=== PATIENT | male | born 1980 | race Caucasian/White ===

== ENCOUNTER 2020-07-05 19:01 | Emergency (ER) | payer SELFPAY ==
[2020-07-05 19:04] VITALS: BP 131/97; PULSE 123; RESP 18; TEMP 36.5; O2SAT 98
--- NOTE | 2020-07-05 19:27 | ED.GENADULT ---
HPI - General Adult General Chief complaint: Headache Stated complaint: swollen tonsils Time Seen by Provider: 07/05/20 19:27 History of Present Illness HPI narrative: Right posterior headache for the past 3 days. Associated with Right ear pain, lymphadenopathy, sore throat, and subjective fevers. Seen today at urgent care and sent here due to tonsillar enlargement. No trismus, cough. Related Data Allergies Allergy/AdvReac Type Severity Reaction Status Date / Time No Known Allergies Allergy Verified 07/05/20 19:07 Review of Systems Review of Systems: All systems reviewed & are unremarkable except as noted in HPI and below Constitutional: Constitutional: Denies weakness Eyes: Eyes: Denies change in vision ENT: Denies vertigo and Reports sore throat Cardiovascular: Cardiovascular: Denies chest pain Respiratory: Respiratory: Denies cough and Denies dyspnea Gastrointestinal: Gastrointestinal: Denies abdominal pain and Denies nausea Musculoskeletal: Musculoskeletal: Denies back pain Neurologic: Denies confusion, Denies numbness and Denies weakness [facility] Past Medical History Medical History Sinusitis Exam Const: General: healthy appearing, no acute distress and alert Orientation/consciousness: patient oriented x3 HENMT: Ears: TM abnormal erythematous on the right; not bulging and with no fluid behind the TM Other: oropharyngeal erythema Eyes: Pupils: Equal, round and reactive pupils present Neck: Neck: lymphadenopathy Chest: Chest palpation & inspection: normal inspection of the chest Resp: Effort & Inspection: normal respiratory effort Auscultation: clear to auscultation bilaterally Cardio: Rate: regular rate and tachycardic Course Vital Signs Vital signs: Vital Signs Temperature 36.5 C 07/05/20 19:04 Pulse Rate 123 H 07/05/20 19:04 Respiratory Rate 18 07/05/20 19:04 Blood Pressure 131/97 H 07/05/20 19:04 Pulse Oximetry 98 07/05/20 19:04 Temperature 36.5 C 07/05/20 19:04 Pulse Rate 109 H 07/05/20 20:45 Respiratory Rate 18 07/05/20 20:45 Blood Pressure 121/92 H 07/05/20 21:00 Pulse Oximetry 97 07/05/20 21:01 Medical Decision Making MDM Narrative Medical decision making narrative: Strep positive. Uvula midline with symetrical tonsillar enlargement. Unlikely to be an abscess. Vital Signs Vital Signs: Vital Signs Temperature 36.5 C 07/05/20 19:04 Pulse Rate 123 H 07/05/20 19:04 Respiratory Rate 18 07/05/20 19:04 Blood Pressure 131/97 H 07/05/20 19:04 Pulse Oximetry 98 07/05/20 19:04 Temperature 36.5 C 07/05/20 19:04 Pulse Rate 109 H 07/05/20 20:45 Respiratory Rate 18 07/05/20 20:45 Blood Pressure 121/92 H 07/05/20 21:00 Pulse Oximetry 97 07/05/20 21:01 Lab Data Labs: Strep Screen Positive Group A Strep *(Reference Range: Negative)* Discharge Plan Discharge Clinical Impression: Strep tonsillitis Patient Disposition: Home, Self-Care Condition: Stable Instructions: Antibiotic Form, Tonsillitis (ED) Prescriptions: New penicillin V potassium 500 mg tablet 500 mg PO Q12H Qty: 20 RF: 0 Follow-up/Referrals: PHYSICIAN,[employer] [Primary Care Provider] - Stand Alone Forms: Work/School Release IP
[2020-07-05 19:52] VITALS: BP 134/91; PULSE 114; RESP 18; O2SAT 97
[2020-07-05] MEDS: SODIUM CHLORIDE 0.9% IV 1,000 ML 999 ML IV CONT (19:57)
[2020-07-05] MEDS: KETOROLAC 30 MG/ML VIAL (*BKC) IV PUSH (19:57)
[2020-07-05] MEDS: METOCLOPRAMIDE HCL INJ 10 MG/2 ML VIAL IV PUSH (19:58)
[2020-07-05] MEDS: AMPICILLIN SULB 3 GM/NS 100 ML 3 GM/100 ML VIAL IVPB (20:30)
[2020-07-05 20:40] VITALS: O2SAT 96
[2020-07-05 20:45] VITALS: BP 122/88; PULSE 109; RESP 18; O2SAT 97
[2020-07-05 21:00] VITALS: BP 121/92; O2SAT 97
[2020-07-05 21:01] VITALS: O2SAT 97
== END 2020-07-05 21:15 | disposition home or self-care (01) ==
PROVIDERS: Emergency Provider Emergency Medicine
DX: J03.00 Acute streptococcal tonsillitis, unspecified (principal)
CPT/HCPCS: 87880; 96361; 96365; 96375; 99284; J0131; J0295; J1100; J1885; J2765; J7030